=== PATIENT | female | born 1950 | race Caucasian/White ===

== ENCOUNTER 2019-03-20 06:44 | Day surgery (SDC) | payer MEDICARE, BC ==
[2019-03-20] MEDS ORDERED: Sodium Chloride 0.9% 10 ML Syringe FLUSH PRN (07:00)
[2019-03-20] MEDS ORDERED: Lactated Ringers 1,000 ML IV SCH (07:00)
[2019-03-20] MEDS ORDERED: Propofol 200 MG/20 ML SDV ONE ×2 (08:05→11:32)
[2019-03-20] MEDS ORDERED: fentaNYL 100 MCG/2 ML SDV ONE (08:05)
--- NOTE | 2019-03-20 10:24 | OR ---
DATE OF SURGERY: 03/20/2019. REFERRING PROVIDER: Gely Gonzalez MD. PRE-OPERATIVE DIAGNOSIS: History of colon polyps. Last colonoscopy in 2013 revealed rectal adenoma. There is no family history of colon cancer. POST-OPERATIVE DIAGNOSES: 1. Moderate left diverticulosis. 2. Mild hemorrhoids, not acutely inflamed. PROCEDURE: Colonoscopy. SURGEON: Tristen Santana M.D. ANESTHESIA: Monitored anesthesia care. BOWEL PREP: Good. Doreen is a 69-year-old female, who was brought to the endoscopy suite after discussing risks and benefits of the procedure. Informed consent was obtained for conscious sedation and colonoscopy with or without biopsy and/or polypectomy. We also discussed possibility of missed lesions. Pre-procedure exam was unremarkable. IV, oxygen, and monitors were placed. The patient was placed in the left lateral decubitus position. Sedation was administered and a digital rectal exam was performed and remarkable for some mild hemorrhoids, not acutely inflamed. Colonoscope was passed into the rectum and slowly advanced all the way to the cecum. Cecum was viewed and photographed. The colonoscope was slowly withdrawn and the mucosa was closed observed in a direct circumferential manner. The ascending colon was unremarkable. The transverse colon was unremarkable. The descending and sigmoid colon revealed some moderate diverticulosis. Retroflexion was performed and rectal mucosa was revealed some mild hemorrhoids, not acutely inflamed. Scope was removed. The patient tolerated the procedure well. The patient was monitored until that baseline status. Discharge instructions were reviewed and the patient was discharged in good condition. COMPLICATIONS: None. TOTAL TIME: 27 minutes ESTIMATED BLOOD LOSS: None. RECOMMENDATIONS/FOLLOW-UP: Given the patient's history of polyps, would recommend repeat scope in 5 years. I would like to kindly thank Dr. Gonzalez for this referral. DMB: 03/20/2019 10:00:16 MODL: 03/20/2019 10:16:59 /[id number]
== END 2019-03-20 11:08 | disposition home or self-care (01) ==
LOC: VM.SDS 06:44
PROVIDERS: ATTEND Family Medicine
DX: Z12.11 Encounter for screening for malignant neoplasm of colon (principal); K57.30 Diverticulosis of large intestine without perforation or abscess without bleeding; K64.9 Unspecified hemorrhoids; I10 Essential (primary) hypertension; E66.9 Obesity, unspecified; E03.9 Hypothyroidism, unspecified; K21.9 Gastro-esophageal reflux disease without esophagitis; E78.00 Pure hypercholesterolemia, unspecified; F33.0 Major depressive disorder, recurrent, mild; E03.4 Atrophy of thyroid (acquired); R73.9 Hyperglycemia, unspecified; I34.0 Nonrheumatic mitral (valve) insufficiency; G47.33 Obstructive sleep apnea (adult) (pediatric); J30.9 Allergic rhinitis, unspecified; R00.1 Bradycardia, unspecified; N95.9 Unspecified menopausal and perimenopausal disorder; Z86.010 Personal history of colon polyps; Z87.19 Personal history of other diseases of the digestive system; Z79.899 Other long term (current) drug therapy; Z88.5 Allergy status to narcotic agent; Z88.8 Allergy status to other drugs, medicaments and biological substances; Z87.898 Personal history of other specified conditions; Z79.82 Long term (current) use of aspirin; Z79.2 Long term (current) use of antibiotics; Z68.37 Body mass index [BMI] 37.0-37.9, adult
CPT/HCPCS: 00811; G0121; J2704; J3010; J7120

== ENCOUNTER 2024-12-11 08:32 | Day surgery (SDC) | payer MEDICARE, BC ==
[~2024-12-11 08:32] MED LIST: Lactated Ringers 1,000 ML IV SCH
[2024-12-11] MEDS: Lactated Ringers 1,000 ML IV SCH (08:52)
[2024-12-11] MEDS ORDERED: Propofol 200 MG/20 ML SDV ONE (09:51)
[2024-12-11] MEDS ORDERED: Midazolam 1 MG/ML 2 ML SDV ONE (09:52)
[2024-12-11] MEDS ORDERED: fentaNYL 100 MCG/2 ML SDV ONE (09:52)
[2024-12-11] MEDS ORDERED: Glycopyrrolate 0.2 MG/ML 2 ML SDV ONE (10:35)
== END 2024-12-11 12:00 | disposition home or self-care (01) ==
LOC: VM.SDS 08:32
PROVIDERS: ATTEND Family Medicine
DX: Z12.11 Encounter for screening for malignant neoplasm of colon (principal); D12.6 Benign neoplasm of colon, unspecified; K57.30 Diverticulosis of large intestine without perforation or abscess without bleeding; Z86.0100 Personal history of colon polyps, unspecified; I10 Essential (primary) hypertension; E78.00 Pure hypercholesterolemia, unspecified; E06.3 Autoimmune thyroiditis; F33.0 Major depressive disorder, recurrent, mild; K21.9 Gastro-esophageal reflux disease without esophagitis; Z79.899 Other long term (current) drug therapy
CPT/HCPCS: 00811; 88305; 99100; J2250; J2704; J3010; J3490; J7120